=== PATIENT | female | born 1960 | race Caucasian/White ===

== ENCOUNTER 2023-03-14 13:07 | Day surgery (SDC) | payer BC ==
[2023-03-14] MEDS ORDERED: Iopamidol-M 200 41% 10 ML VIAL FS ONE (13:27)
[2023-03-14 13:53] VITALS: BP 158/75; TEMP 98
== END 2023-03-14 15:23 | disposition home or self-care (01) ==
LOC: CSHRAD 13:07
PROVIDERS: ATTEND Anesthesiology Pain Medicine
PROC: B02BYZZ Computerized Tomography (CT Scan) of Spinal Cord using Other Contrast (ICD-10-PCS; principal; 2023-03-14)
DX: M48.062 Spinal stenosis, lumbar region with neurogenic claudication (principal); K21.9 Gastro-esophageal reflux disease without esophagitis; Z90.710 Acquired absence of both cervix and uterus; Z88.5 Allergy status to narcotic agent; Z88.6 Allergy status to analgesic agent; Z88.8 Allergy status to other drugs, medicaments and biological substances; Z91.048 Other nonmedicinal substance allergy status
CPT/HCPCS: 62304; 72132; Q9966